=== PATIENT | male | born 1980 | race Caucasian/White ===

== ENCOUNTER 2018-03-19 06:41 | Emergency (ER) | payer MEDICAID ==
[~2018-03-19] VITALS: Ht 185.4 cm; Wt 124.1 kg
[~2018-03-19 06:41] MED LIST: CITA10TA8 PO
[2018-03-19 06:50] VITALS: BP 127/86
== END 2018-03-19 07:14 | disposition home or self-care (01) ==
LOC: ED 07:10
DX: J20.9 Acute bronchitis, unspecified (principal); B96.89 Other specified bacterial agents as the cause of diseases classified elsewhere; J01.10 Acute frontal sinusitis, unspecified; F32.9 Major depressive disorder, single episode, unspecified; F17.200 Nicotine dependence, unspecified, uncomplicated
CPT/HCPCS: 99283